=== PATIENT | male | born 2000 | race Asian ===

== ENCOUNTER 2019-01-13 12:29 | Inpatient (IN) | payer OTHER ==
[~2019-01-13] VITALS: Ht 170.2 cm; Wt 70.8 kg
[2019-01-13] MEDS ORDERED: SODIUM CHLORIDE 0.9% 1,000 ML IV ONE ×3 (14:30→21:00)
[2019-01-13 15:02] LABS: BASOPHILS % (AUTO) 0.2 % (0.0-2.0); EOSINOPHILS % (AUTO) 0.4 % (1.0-6.0); HEMATOCRIT 36.6 % (41-53); HEMOGLOBIN 12.4 g/dL (13.5-17.5); LYMPHOCYTES # (AUTO) 1.8 K/uL (1.0-4.8); LYMPHOCYTES % (AUTO) 11.5 % (22.0-44.0); MEAN CORPUSCULAR HGB CONC 33.9 G/dL (31.0-37.0); MEAN CORPUSCULAR VOLUME 92 fL (80-100); MONOCYTES # (AUTO) 1.5 K/uL (0.1-1.0); MONOCYTES % (AUTO) 9.8 % (2.0-9.0); NEUTROPHILS # (AUTO) 12.4 K/uL (1.8-7.7); NEUTROPHILS % (AUTO) 78.1 % (40.0-70.0); PLATELET COUNT (AUTO) 230 K/uL (150-450); RED BLOOD CELL COUNT(AUTO) 3.99 MIL/uL (4.50-5.90); RED CELL DISTRIBUTION WIDTH 13.1 % (11.5-14.5)
[2019-01-13 15:12] LABS: ANION GAP 7 mmol/L (8-16); CALCIUM, TOTAL 8.6 mg/dL (8.8-10.5); CARBON DIOXIDE 27 mmol/L (22-29); CHLORIDE 101 mmol/L (98-107); CREATININE 0.92 mg/dL (0.60-1.30); GLOMERULAR FILTR. RATE CALC > 60 mL/min (>60); GLUCOSE,RANDOM 129 mg/dL (70-110); POTASSIUM 3.8 mmol/L (3.5-5.1); SODIUM SERUM 135 mmol/L (136-145); UREA NITROGEN, BLOOD 7 mg/dL (7-18)
[2019-01-13 15:18] LABS: ALANINE AMINOTRANSFERASE 50 U/L (12-78); ALBUMIN 2.9 g/dL (3.4-5.0); ALKALINE PHOSPHATASE 52 U/L (46-116); ASPARTATE AMINOTRANSFERASE 43 U/L (15-37); BILIRUBIN,TOTAL 0.7 mg/dL (0.1-1.0); TOTAL PROTEIN, SERUM 6.7 g/dL (6.4-8.2)
[2019-01-13 15:21] LABS: LACTIC ACID 1.8 mmol/L (0.4-2.0)
[2019-01-13] MEDS ORDERED: CLINDAMYCIN 600 MG/D5% WATER 50 ML IV ONE (16:00)
[2019-01-13] MEDS ORDERED: PERTUSS(ACELL),DIPH,TET VAC/PF 0.5 ML VIAL IM ONE (16:00)
[2019-01-13] MEDS ORDERED: SODIUM CHLORIDE 0.9% 100 ML ONE (16:20)
[2019-01-13] MEDS ORDERED: IOVERSOL 320 MG/ML 100 ML VIAL ONE (16:20)
[2019-01-13] MEDS ORDERED: PIPERACILLIN/TAZO 3.375 GM/D5W 50 ML IV ONE (16:30)
[2019-01-13] MEDS ORDERED: VANCOMYCIN HCL 1.5 GM in DEXTROSE 5%-WATER 250 ML IV ONE (17:00)
[2019-01-13 17:13] LABS: INFLUENZA TYPE A NEGATIVE FOR TYPE A (NEGATIVE); INFLUENZA TYPE B NEGATIVE FOR TYPE B (NEGATIVE)
[2019-01-13] MEDS ORDERED: 0.9% SODIUM CHLORIDE 10 ML SYRINGE IVP PRN ×2 (18:30→22:15)
[2019-01-13] MEDS ORDERED: ACETAMINOPHEN 325 MG TABLET PO PRN (18:30)
[2019-01-13] MEDS ORDERED: ONDANSETRON HCL 4 MG/2 ML VIAL IVP PRN ×2 (18:30→22:15)
[2019-01-13] MEDS ORDERED: GADOBUTROL 1 MMOL/ML 10 ML VIAL IVP ONE (19:02)
[2019-01-13 19:43] LABS: CREATINE KINASE, TOTAL ONLY 1183 U/L (39-308); LACTATE DEHYDROGENASE 349 U/L (85-227)
[2019-01-13] MEDS ORDERED: SODIUM CHLORIDE 0.9% 2,200 ML IV ONE (20:45)
[2019-01-13] MEDS ORDERED: PIPERACILLIN/TAZO 3.375 GM/D5W 50 ML IV SCH (23:00)
[2019-01-13 23:10] VITALS: BP 110/60
[2019-01-13] MEDS: PIPERACILLIN/TAZO 3.375 GM/D5W 50 ML IV SCH (23:32)
[2019-01-14] MEDS: CLINDAMYCIN HCL 300 MG CAPSULE PO SCH ×2 (00:41→16:25)
[2019-01-14] MEDS ORDERED: INFLUENZA VIRUS VACCINE QVS 2019-20 (3YR+)/PF 60 MCG/0.5 ML SYRINGE IM ONE (01:45)
[2019-01-14 04:55] VITALS: BP 98/57
[2019-01-14] MEDS: PIPERACILLIN/TAZO 3.375 GM/D5W 50 ML IV SCH ×4 (05:01→22:47)
[2019-01-14 05:56] LABS: BASOPHILS % (AUTO) 0.3 % (0.0-2.0); EOSINOPHILS % (AUTO) 1.5 % (1.0-6.0); HEMATOCRIT 33.5 % (41-53); HEMOGLOBIN 11.5 g/dL (13.5-17.5); LYMPHOCYTES # (AUTO) 2.4 K/uL (1.0-4.8); LYMPHOCYTES % (AUTO) 15.1 % (22.0-44.0); MEAN CORPUSCULAR HEMOGLOBIN 31.7 pg (26.0-34.0); MEAN CORPUSCULAR HGB CONC 34.4 G/dL (31.0-37.0); MEAN CORPUSCULAR VOLUME 92 fL (80-100); MONOCYTES # (AUTO) 1.4 K/uL (0.1-1.0); MONOCYTES % (AUTO) 8.6 % (2.0-9.0); NEUTROPHILS # (AUTO) 11.9 K/uL (1.8-7.7); NEUTROPHILS % (AUTO) 74.5 % (40.0-70.0); PLATELET COUNT (AUTO) 206 K/uL (150-450); RED BLOOD CELL COUNT(AUTO) 3.63 MIL/uL (4.50-5.90); RED CELL DISTRIBUTION WIDTH 13.3 % (11.5-14.5)
[2019-01-14 06:14] LABS: PROTHROMBIN TIME 10.5 SEC (9.4-11.6)
[2019-01-14 06:24] LABS: ALANINE AMINOTRANSFERASE 39 U/L (12-78); ALBUMIN 2.5 g/dL (3.4-5.0); ALKALINE PHOSPHATASE 56 U/L (46-116); ANION GAP 6 mmol/L (8-16); ASPARTATE AMINOTRANSFERASE 31 U/L (15-37); BILIRUBIN,TOTAL 0.4 mg/dL (0.1-1.0); CALCIUM, TOTAL 7.8 mg/dL (8.8-10.5); CARBON DIOXIDE 26 mmol/L (22-29); CHLORIDE 105 mmol/L (98-107); CREATININE 0.94 mg/dL (0.60-1.30); GLOMERULAR FILTR. RATE CALC > 60 mL/min (>60); GLUCOSE,RANDOM 108 mg/dL (70-110); POTASSIUM 3.8 mmol/L (3.5-5.1); SODIUM SERUM 137 mmol/L (136-145); TOTAL PROTEIN, SERUM 6.2 g/dL (6.4-8.2); UREA NITROGEN, BLOOD 3 mg/dL (7-18)
[2019-01-14] MEDS ORDERED: RINGERS SOLUTION,LACTATED 1,000 ML IV ONE (06:40)
[2019-01-14] MEDS ORDERED: RINGERS SOLUTION,LACTATED 1,000 ML IV SCH (06:45)
[2019-01-14] MEDS ORDERED: SODIUM CL IRRIG SOLN BAG 0 ML IRRIG ONE ×2 (06:49→14:32)
[2019-01-14] MEDS ORDERED: BACITRACIN 50,000 UNITS/VIAL ONE (06:50)
[2019-01-14] MEDS ORDERED: LIDOCAINE/PF 1% 30 ML VIAL ONE ×2 (06:52→07:04)
[2019-01-14] MEDS ORDERED: BUPIVACAINE HCL/PF 0.25% 30 ML VIAL ONE ×2 (06:52→07:04)
[2019-01-14] MEDS ORDERED: BACITRACIN 28.4 GM OINTMENT TP ONE (07:04)
[2019-01-14] MEDS ORDERED: SODIUM CHLORIDE 0.9% 10 ML ONE (07:31)
[2019-01-14] MEDS ORDERED: BUPIVACAINE HCL/PF 0.5% 30 ML VIAL ONE (07:34)
[2019-01-14] MEDS ORDERED: FentaNYL CITRATE-PF 100 MCG/2 ML VIAL IVP PRN (07:45)
[2019-01-14] MEDS ORDERED: MEPERIDINE-PF 25 MG/ML VIAL IVP PRN (07:45)
[2019-01-14] MEDS ORDERED: SUGAMMADEX SODIUM 200 MG/2 ML VIAL IVP ONE (07:52)
[2019-01-14] MEDS ORDERED: ACETAMINOPHEN 1000 MG/ISO-OSM 100 ML IV ONE (07:52)
[2019-01-14] MEDS: OXYGEN THERAPY IH SCH ×2 (08:00→20:19)
[2019-01-14] MEDS ORDERED: HYDROmorphone 2 MG/ML SYRINGE ONE (08:26)
[2019-01-14] MEDS: HYDROmorphone 2 MG/ML SYRINGE IVP PRN ×2 (08:28→08:47)
[2019-01-14 09:30] VITALS: BP 116/63
[2019-01-14] MEDS ORDERED: ROCURONIUM BROMIDE 10 MG/ML 5 ML VIAL IVP ONE (12:00)
[2019-01-14] MEDS ORDERED: ALBUTEROL SULFATE HFA 90 MCG/PUFF 8 GM INHALER IH ONE (12:00)
[2019-01-14] MEDS ORDERED: FentaNYL CITRATE-PF 250 MCG/5 ML VIAL IVP ONE (12:00)
[2019-01-14] MEDS ORDERED: ONDANSETRON HCL 4 MG/2 ML VIAL IVP ONE (12:00)
[2019-01-14] MEDS ORDERED: KETOROLAC TROMETHAMINE 60 MG/2 ML VIAL IM ONE (12:00)
[2019-01-14] MEDS ORDERED: LIDOCAINE/PF 2% 5 ML VIAL INJ ONE (12:00)
[2019-01-14] MEDS ORDERED: METOCLOPRAMIDE HCL 5 MG/ML 2 ML VIAL IVP ONE (12:00)
[2019-01-14] MEDS ORDERED: DEXAMETHASONE SOD PHOS 4 MG/ML VIAL IVP ONE (12:00)
[2019-01-14] MEDS ORDERED: MIDAZOLAM HCL 2 MG/2 ML VIAL IVP ONE (12:00)
[2019-01-14] MEDS ORDERED: PROPOFOL 1% 20 ML VIAL IVP ONE (12:00)
[2019-01-14 13:00] VITALS: BP 98/58
[2019-01-14] MEDS ORDERED: SODIUM CHLORIDE 0.9% 250 ML IV ONE (13:34)
[2019-01-14 15:57] VITALS: BP 100/51
[2019-01-14] MEDS: PANTOPRAZOLE SODIUM 40 MG DR TABLET PO SCH (16:23)
[2019-01-14] MEDS: VANCOMYCIN HCL 1 GM/D5% WATER 200 ML IV SCH ×2 (16:26→23:19)
[2019-01-14] MEDS: SODIUM CHLORIDE 0.9% 1,000 ML IV SCH (18:59)
[2019-01-14 20:08] VITALS: BP 106/68
[2019-01-14 23:36] VITALS: BP 102/59
[2019-01-15] MEDS: CLINDAMYCIN HCL 300 MG CAPSULE PO SCH ×3 (02:12→16:30)
[2019-01-15] MEDS: PIPERACILLIN/TAZO 3.375 GM/D5W 50 ML IV SCH ×3 (05:36→20:49)
[2019-01-15] MEDS: ACETAMINOPHEN 325 MG TABLET PO PRN ×2 (05:47→20:51)
[2019-01-15 05:54] VITALS: BP 101/62
[2019-01-15] MEDS: VANCOMYCIN HCL 1 GM/D5% WATER 200 ML IV SCH ×3 (06:21→22:56)
[2019-01-15 07:59] VITALS: BP 88/57
[2019-01-15 08:01] LABS: BASOPHILS % (AUTO) 0.1 % (0.0-2.0); EOSINOPHILS % (AUTO) 0.5 % (1.0-6.0); HEMATOCRIT 33.7 % (41-53); HEMOGLOBIN 11.7 g/dL (13.5-17.5); LYMPHOCYTES # (AUTO) 1.5 K/uL (1.0-4.8); LYMPHOCYTES % (AUTO) 7.8 % (22.0-44.0); MEAN CORPUSCULAR HEMOGLOBIN 31.7 pg (26.0-34.0); MEAN CORPUSCULAR HGB CONC 34.8 G/dL (31.0-37.0); MEAN CORPUSCULAR VOLUME 91 fL (80-100); MONOCYTES # (AUTO) 1.2 K/uL (0.1-1.0); MONOCYTES % (AUTO) 6.1 % (2.0-9.0); NEUTROPHILS # (AUTO) 16.8 K/uL (1.8-7.7); PLATELET COUNT (AUTO) 244 K/uL (150-450); RED BLOOD CELL COUNT(AUTO) 3.69 MIL/uL (4.50-5.90); RED CELL DISTRIBUTION WIDTH 12.9 % (11.5-14.5)
[2019-01-15 08:06] LABS: NEUTROPHILS % (AUTO) 85.5 % (40.0-70.0)
[2019-01-15 08:17] LABS: ALANINE AMINOTRANSFERASE 43 U/L (12-78); ALBUMIN 2.5 g/dL (3.4-5.0); ALKALINE PHOSPHATASE 57 U/L (46-116); ANION GAP 10 mmol/L (8-16); ASPARTATE AMINOTRANSFERASE 26 U/L (15-37); BILIRUBIN,TOTAL 0.6 mg/dL (0.1-1.0); CARBON DIOXIDE 24 mmol/L (22-29); CHLORIDE 104 mmol/L (98-107); CREATININE 0.92 mg/dL (0.60-1.30); GLOMERULAR FILTR. RATE CALC > 60 mL/min (>60); GLUCOSE,RANDOM 121 mg/dL (70-110); POTASSIUM 3.6 mmol/L (3.5-5.1); SODIUM SERUM 138 mmol/L (136-145); TOTAL PROTEIN, SERUM 6.4 g/dL (6.4-8.2); UREA NITROGEN, BLOOD 5 mg/dL (7-18)
[2019-01-15] MEDS: FOLIC ACID 1 MG TABLET PO SCH (08:58)
[2019-01-15] MEDS: PANTOPRAZOLE SODIUM 40 MG DR TABLET PO SCH (08:58)
[2019-01-15] MEDS: MULTIVITAMINS, THERAPEUTIC TABLET PO SCH (08:58)
[2019-01-15] MEDS: THIAMINE HCL 100 MG TABLET PO SCH (08:58)
[2019-01-15] MEDS: OXYGEN THERAPY IH SCH ×2 (08:59→20:52)
[2019-01-15] MEDS: SODIUM CHLORIDE 0.9% 1,000 ML IV SCH (10:27)
[2019-01-15 11:45] VITALS: BP 102/49
[2019-01-15] MEDS ORDERED: SODIUM CHLORIDE 0.9% 1,000 ML IV ONE (12:15)
[2019-01-15 15:58] VITALS: BP 104/62
[2019-01-15 19:52] VITALS: BP 104/65
[2019-01-16] VITALS (7 sets, daily range): BP systolic 93–113; BP diastolic 51–67
[2019-01-16] MEDS: CLINDAMYCIN HCL 300 MG CAPSULE PO SCH ×4 (00:13→23:50)
[2019-01-16] MEDS: PIPERACILLIN/TAZO 3.375 GM/D5W 50 ML IV SCH ×4 (03:09→20:17)
[2019-01-16] MEDS: VANCOMYCIN HCL 1 GM/D5% WATER 200 ML IV SCH ×3 (06:21→23:31)
[2019-01-16 07:59] LABS: ANION GAP 5 mmol/L (8-16); CARBON DIOXIDE 28 mmol/L (22-29); CHLORIDE 105 mmol/L (98-107); CREATININE 1.09 mg/dL (0.60-1.30); GLOMERULAR FILTR. RATE CALC > 60 mL/min (>60); GLUCOSE,RANDOM 94 mg/dL (70-110); POTASSIUM 3.8 mmol/L (3.5-5.1); SODIUM SERUM 138 mmol/L (136-145); UREA NITROGEN, BLOOD 9 mg/dL (7-18)
[2019-01-16] MEDS: OXYGEN THERAPY IH SCH (08:00)
[2019-01-16] MEDS: MULTIVITAMINS, THERAPEUTIC TABLET PO SCH (08:48)
[2019-01-16] MEDS: THIAMINE HCL 100 MG TABLET PO SCH (08:48)
[2019-01-16] MEDS: PANTOPRAZOLE SODIUM 40 MG DR TABLET PO SCH (08:48)
[2019-01-16] MEDS: SODIUM CHLORIDE 0.9% 1,000 ML IV SCH ×2 (08:48→15:40)
[2019-01-16] MEDS: FOLIC ACID 1 MG TABLET PO SCH (08:49)
[2019-01-16] MEDS: HYDROCODONE/ACETAMINOPHEN 5-325 MG TABLET PO PRN ×3 (08:54→20:14)
[2019-01-17] MEDS: PIPERACILLIN/TAZO 3.375 GM/D5W 50 ML IV SCH ×2 (03:56→09:00)
[2019-01-17 05:05] VITALS: BP 101/55
[2019-01-17] MEDS: VANCOMYCIN HCL 1 GM/D5% WATER 200 ML IV SCH (06:36)
[2019-01-17 07:25] VITALS: BP 101/52
[2019-01-17 07:34] LABS: BASOPHILS % (AUTO) 0.8 % (0.0-2.0); EOSINOPHILS % (AUTO) 4.5 % (1.0-6.0); HEMATOCRIT 36.1 % (41-53); HEMOGLOBIN 12.4 g/dL (13.5-17.5); LYMPHOCYTES # (AUTO) 2.9 K/uL (1.0-4.8); LYMPHOCYTES % (AUTO) 31.2 % (22.0-44.0); MEAN CORPUSCULAR HEMOGLOBIN 31.7 pg (26.0-34.0); MEAN CORPUSCULAR HGB CONC 34.3 G/dL (31.0-37.0); MEAN CORPUSCULAR VOLUME 92 fL (80-100); MONOCYTES # (AUTO) 1.1 K/uL (0.1-1.0); MONOCYTES % (AUTO) 11.4 % (2.0-9.0); NEUTROPHILS # (AUTO) 4.9 K/uL (1.8-7.7); NEUTROPHILS % (AUTO) 52.1 % (40.0-70.0); PLATELET COUNT (AUTO) 285 K/uL (150-450); RED BLOOD CELL COUNT(AUTO) 3.91 MIL/uL (4.50-5.90); RED CELL DISTRIBUTION WIDTH 12.9 % (11.5-14.5)
[2019-01-17 07:39] LABS: ANION GAP 7 mmol/L (8-16); CALCIUM, TOTAL 8.3 mg/dL (8.8-10.5); CARBON DIOXIDE 27 mmol/L (22-29); CHLORIDE 104 mmol/L (98-107); CREATININE 1.07 mg/dL (0.60-1.30); GLOMERULAR FILTR. RATE CALC > 60 mL/min (>60); GLUCOSE,RANDOM 94 mg/dL (70-110); POTASSIUM 4.1 mmol/L (3.5-5.1); SODIUM SERUM 138 mmol/L (136-145); UREA NITROGEN, BLOOD 17 mg/dL (7-18)
[2019-01-17] MEDS: OXYGEN THERAPY IH SCH (08:00)
[2019-01-17] MEDS: PANTOPRAZOLE SODIUM 40 MG DR TABLET PO SCH (08:55)
[2019-01-17] MEDS: MULTIVITAMINS, THERAPEUTIC TABLET PO SCH (08:55)
[2019-01-17] MEDS: CLINDAMYCIN HCL 300 MG CAPSULE PO SCH (08:55)
[2019-01-17] MEDS: SODIUM CHLORIDE 0.9% 1,000 ML IV SCH ×2 (08:55→12:15)
[2019-01-17] MEDS: FOLIC ACID 1 MG TABLET PO SCH (08:55)
[2019-01-17] MEDS: HYDROCODONE/ACETAMINOPHEN 5-325 MG TABLET PO PRN ×2 (09:01→23:02)
[2019-01-17] MEDS: THIAMINE HCL 100 MG TABLET PO SCH (09:02)
[2019-01-17 11:20] VITALS: BP 111/62
[2019-01-17 15:20] VITALS: BP 106/74
[2019-01-17] MEDS: CeFAZolin 2 GM/DEXTROSE 50 ML IV SCH ×2 (15:32→22:57)
[2019-01-17 19:43] VITALS: BP 107/70
[2019-01-18] VITALS: BP 107/68
[2019-01-18 05:52] VITALS: BP 111/58
[2019-01-18] MEDS: CeFAZolin 2 GM/DEXTROSE 50 ML IV SCH ×2 (06:55→13:19)
[2019-01-18 07:10] VITALS: BP 100/65
[2019-01-18] MEDS ORDERED: HEPARIN SODIUM 1000 UNITS/NS 500 ML ONE (07:59)
[2019-01-18] MEDS ORDERED: LIDOCAINE/PF 1% 5 ML VIAL ONE (07:59)
[2019-01-18] MEDS: OXYGEN THERAPY IH SCH (08:00)
[2019-01-18] MEDS: MULTIVITAMINS, THERAPEUTIC TABLET PO SCH (09:20)
[2019-01-18] MEDS: THIAMINE HCL 100 MG TABLET PO SCH (09:20)
[2019-01-18] MEDS: PANTOPRAZOLE SODIUM 40 MG DR TABLET PO SCH (09:21)
[2019-01-18] MEDS: FOLIC ACID 1 MG TABLET PO SCH (09:21)
[2019-01-18 11:20] VITALS: BP 118/56
[2019-01-18] MEDS ORDERED: CEFA2PLA9 IVPB (12:25)
== END 2019-01-18 16:09 | disposition home or self-care (01) | DRG 710 ==
LOC: EMS 12:31 → 4E 18:51 → 6N 01-14 08:10 → 4E 01-16 18:56
PROVIDERS: ADMIT Internal Medicine; ATTEND Internal Medicine
PROC: 0JQJ0ZZ Repair Right Hand Subcutaneous Tissue and Fascia, Open Approach (ICD-10-PCS; 2019-01-14)
PROC: 0LB70ZZ Excision of Right Hand Tendon, Open Approach (ICD-10-PCS; 2019-01-14)
PROC: 0X9J0ZZ Drainage of Right Hand, Open Approach (ICD-10-PCS; principal; 2019-01-14 07:30)
PROC: 02HV33Z Insertion of Infusion Device into Superior Vena Cava, Percutaneous Approach (ICD-10-PCS; 2019-01-18)
PROC: B5181ZA Fluoroscopy of Superior Vena Cava using Low Osmolar Contrast, Guidance (ICD-10-PCS; 2019-01-18)
PROC: B548ZZA Ultrasonography of Superior Vena Cava, Guidance (ICD-10-PCS; 2019-01-18)
DX: A41.9 Sepsis, unspecified organism (principal); E44.0 Moderate protein-calorie malnutrition; J45.909 Unspecified asthma, uncomplicated; S67.31XA Crushing injury of right wrist, initial encounter; L03.113 Cellulitis of right upper limb; L02.511 Cutaneous abscess of right hand; M65.841 Other synovitis and tenosynovitis, right hand; B95.61 Methicillin susceptible Staphylococcus aureus infection as the cause of diseases classified elsewhere; W23.0XXA Caught, crushed, jammed, or pinched between moving objects, initial encounter; S67.21XA Crushing injury of right hand, initial encounter; X58.XXXA Exposure to other specified factors, initial encounter; Z68.24 Body mass index [BMI] 24.0-24.9, adult; Y93.89 Activity, other specified; Y92.89 Other specified places as the place of occurrence of the external cause; Y99.8 Other external cause status; Z28.21 Immunization not carried out because of patient refusal
CPT/HCPCS: 36569; 73201; 73220; 76000; 76937; 83605; 83615; 83735; 87040; 87070; 87081; 87205; 87804; 88304; 90715; 97110; 97165; 99291; A9585; G0378; J0131; J0690; J1100; J1170; J1644; J1885; J2001; J2250; J2405; J2543; J2704; J2765; J3010; J3370; J3490; J3535; J7030; J7050; J7060; J7120